=== PATIENT | male | born 1940 | race Caucasian/White ===

== ENCOUNTER 2022-08-04 13:53 | Emergency (ER) | payer MEDICARE, BC, SELFPAY ==
[2022-08-04 13:58] VITALS: BP 179/98; PULSE 80; RESP 16; TEMP 36.2; O2SAT 100
--- NOTE | 2022-08-04 14:35 | ED.GENADULT ---
HPI - General Adult General Chief complaint: Recheck/Abnormal Lab/Rx Stated complaint: Abnormal UA Time Seen by Provider: 08/04/22 14:20 Source: patient and family Mode of arrival: ambulatory Limitations: no limitations History of Present Illness HPI narrative: 81 years old white male brought to the emergency room by his daughter because of weakness and frequent urination for weeks. Patient was seen by his family physician yesterday and had the blood work-up and urine analysis, the family doctor is not in his office today, patient daughter decided to bring him to our emergency room. She is telling patient have history of frequent urinary tract infection and sepsis, last one was 6 months ago and was hospitalized at [facility]. Patient denies any fever, chills, nausea, vomiting, abdominal pain, back pain. 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, Related Data Allergies Allergy/AdvReac Type Severity Reaction Status Date / Time No Known Allergies Allergy Verified 08/04/22 14:02 Review of Systems Review of Systems: All systems reviewed & are unremarkable except as noted in HPI and below Exam Narrative: General appearance: Well-developed, well-nourished Skin: Normal color Head: Normocephalic, nontraumatic Eyes: Clear conjunctiva ENT: Oropharynx normal, ears normal, nose normal Neck: Supple, nontender Chest and respiratory: Airway patent, no respiratory distress, no accessory muscle use Heart: Regular rate/rhythm Abdomen: Soft, nontender, no organomegaly, quiet bowel sounds Vascular: Normal peripheral pulses, normal capillary refill. Musculoskeletal: Normal range of motion, nontender back Neurologic: Alert and oriented ?3, [employer] is normal as tested, no gross motor deficit Course Course Emergency Course: Work-up today showed no acute abnormality to explain patient feeling. I believe the daughter brought him to the emergency room today because after she read the blood work-up yesterday have some abnormality in it which is significant ,got panicky about it and brought him to our emergency room . She was not able to get hold of the family physician today because he was off. Vital Signs Vital signs: Vital Signs Temperature 36.2 C L 08/04/22 13:58 Pulse Rate 80 08/04/22 13:58 Respiratory Rate 16 08/04/22 13:58 Blood Pressure 179/98 H 08/04/22 13:58 Pulse Oximetry 100 08/04/22 13:58 Oxygen Delivery Room Air 08/04/22 13:58 Temperature 36.2 C L 08/04/22 13:58 Pulse Rate 80 08/04/22 13:58 Respiratory Rate 16 08/04/22 13:58 Blood Pressure 179/98 H 08/04/22 13:58 Pulse Oximetry 100 08/04/22 13:58 Oxygen Delivery Room Air 08/04/22 13:58 Medical Decision Making Differential Diagnosis Differential Diagnosis: Electrolyte imbalance, urinary tract infection Vital Signs Vital Signs: Vital Signs Temperature 36.2 C L 08/04/22 13:58 Pulse Rate 80 08/04/22 13:58 Respiratory Rate 16 08/04/22 13:58 Blood Pressure 179/98 H 08/04/22 13:58 Pulse Oximetry 100 08/04/22 13:58 Oxygen Delivery Room Air 08/04/22 13:58 Temperature 36.2 C L 08/04/22 13:58 Pulse Rate 80 08/04/22 13:58 Respiratory Rate 16 08/04/22 13:58 Blood Pressure 179/98 H 08/04/22 13:58 Pulse Oximetry 100 08/04/22 13:58 Oxygen Delivery Room Air 08/04/22 13:58 Lab Data 08/04/22 15:07 08/04/22 15:07 Labs: Lab Results 08/04/22 08/04/22 08/04/22 Range/Units 15:07 15:07 15:29 WBC 6.1 (4.5-10.0) K/mm3 RBC 5.07 (4.6-6.20) M/mm3 Hgb 13.6 L (14.0-18.0) g/dL Hct 43.0 (42.0-52.0) % MCV 84.8 (80-100) fl MCH 26.8 (26-34) p
[2022-08-04 15:13] LABS: Basophils Percent Auto 0.7 % (0.2-1.2); Eosinophils Absolute Auto 0.3 K/mm3 (0-0.3); Eosinophils Percent Auto 4.4 % (0-4.4); Hemoglobin 13.6 g/dL (14.0-18.0); Immature Granulocyte Absolute 0.03 K/mm3 (0.00-0.031); Immature Granulocyte Percent A 0.5 % (0-0.5); Lymphocytes Absolute Auto 1.95 K/mm3 (0.9-3.2); Lymphocytes Percent Auto 31.8 % (18.3-44.2); Mean Corpuscular HGB Conc 31.6 g/dl (32-36); Mean Corpuscular Hemoglobin 26.8 pg (26-34); Mean Corpuscular Volume 84.8 fl (80-100); Monocytes Absolute Auto 0.4 K/mm3 (0.1-0.6); Monocytes Percent Auto 6.4 % (2.6-8.5); Neutrophils Absolute Auto 3.5 K/mm3 (1.3-6.7); Neutrophils Percent Auto 56.2 % (45.5-73.1); Platelet Count Result 137 k/mm3 (150-375); Red Blood Count 5.07 M/mm3 (4.6-6.20); Red Cell Distribution Width 15.9 % (11.5-14.5); White Blood Count 6.1 K/mm3 (4.5-10.0)
[2022-08-04 15:22] LABS: Alanine Aminotransferase 34 U/L (6-50); Alkaline Phosphatase 49 U/L (38-126); Anion Gap 8 mmol/L (8-16); Aspartate Amino Transferase 41 U/L (17-59); Bilirubin,Total 0.8 mg/dL (0.2-1.3); Blood Urea Nitrogen 18 mg/dL (9-20); Calcium 8.8 mg/dL (8.4-10.2); Carbon Dioxide 30 mmol/L (22-30); Chloride 101 mmol/L (98-107); Estimated CRCL calculation 84 ml/min; Estimated Glomerular Filt Rate > 60; Glucose 119 mg/dL (65-110); Potassium 3.9 mmol/L (3.4-5.0); Sodium 139 mmol/L (137-145)
[2022-08-04 15:39] LABS: Appearance Urine Clear (Clear); Bilirubin Urine Negative (Negative); Blood Urine Trace-intact (Negative); Color Urine Yellow (Yellow); Glucose Urine UA Negative (Negative); Ketones Urine Negative (Negative); Leukocyte Esterase Ur Negative LEU/UL (Negative); Nitrate Urine Negative (Negative); Protein Urine 3+ mg/dL (Negative)
[2022-08-04 15:43] LABS: Mucus Urine Rare /lpf; RBC Urine 0-2 /hpf (0-2); WBC Urine 0-3 /hpf
[2022-08-04 15:44] LABS: Add Urine Microscopic? YES
== END 2022-08-04 16:11 | disposition home or self-care (01) ==
PROVIDERS: Emergency Provider Emergency Medicine
DX: R80.9 Proteinuria, unspecified (principal); Z85.51 Personal history of malignant neoplasm of bladder; Z87.440 Personal history of urinary (tract) infections
CPT/HCPCS: 36415; 80053; 81001; 85025; 99283